=== PATIENT | female | born 1990 | race Native Hawaiian/Other Pacific Islander ===

== ENCOUNTER 2017-02-17 08:02 | Day surgery (SDC) | payer OTHER | END 2017-02-17 10:45 | disposition home or self-care (01) | LOC: OR 08:02 | PROC: 0DBA8ZX Excision of Jejunum, Via Natural or Artificial Opening Endoscopic, Diagnostic (ICD-10-PCS; principal; 2017-02-17) | DX: R10.9 Unspecified abdominal pain (principal); D12.6 Benign neoplasm of colon, unspecified; Z90.49 Acquired absence of other specified parts of digestive tract; Z12.13 Encounter for screening for malignant neoplasm of small intestine | CPT/HCPCS: 81025; J1100; J2001; J2250; J2704; J3010 ==

== ENCOUNTER 2018-01-25 14:25 | Outpatient (CLI) | payer OTHER | END 2018-01-25 19:26 | disposition home or self-care (01) | LOC: MAMMO 14:25 | DX: N63.24 Unspecified lump in the left breast, lower inner quadrant (principal) ==

== ENCOUNTER 2021-06-24 21:57 | Emergency (ER) | payer OTHER ==
[~2021-06-24] VITALS: Ht 162.6 cm; Wt 51.7 kg
[2021-06-24 23:31] LABS: PLATELET COUNT 241 K/uL (152-353)
[2021-06-24 23:53] LABS: POTASSIUM 3.6 mmol/L (3.6-5.2); SODIUM 141 mmol/L (136-145)
[2021-06-25 07:00] VITALS: BP 128/74; TEMP 97.7
== END 2021-06-25 10:30 | disposition home or self-care (01) ==
LOC: ED 21:57
PROVIDERS: Emergency Medicine Emergency Medical Services
DX: F32.89 Other specified depressive episodes (principal); Z20.822 Contact with and (suspected) exposure to COVID-19
CPT/HCPCS: 36415; 80053; 80307; 80320; 80329; 81000; 81025; 85027; 87635; 93005; 99285; U0003

== ENCOUNTER 2021-08-30 23:18 | Emergency (ER) | payer OTHER ==
[~2021-08-30] VITALS: Ht 165.1 cm; Wt 49.9 kg
[2021-08-31 01:30] VITALS: BP 106/64; TEMP 98.5
== END 2021-08-31 01:35 | disposition home or self-care (01) ==
LOC: ED 23:18
DX: J45.901 Unspecified asthma with (acute) exacerbation (principal); F17.210 Nicotine dependence, cigarettes, uncomplicated
CPT/HCPCS: 94664; 96374; 99284; J2920